=== PATIENT | female | born 1980 ===

== ENCOUNTER 2016-08-06 20:52 | Emergency (ER) | payer OTHER ==
[2016-08-06] MEDS ORDERED: Potassium Chloride 20 mEq ER Tab PO ONE (21:01)
[2016-08-06] MEDS ORDERED: cefTRIAXone (Rocephin) 1 gm Inj ONE (21:01)
[2016-08-06 21:02] VITALS: BP 133/71; PULSE 76; RESP 18; TEMP 98.2; O2SAT 99
--- NOTE | 2016-08-06 21:37 | ED PDOC ---
HPI: Skin/Bite Injury Time Seen by Provider: 08/06/16 21:11 Chief Complaint (Nursing): Abnormal Skin Integrity Chief Complaint (Provider): Rash History Per: Patient History/Exam Limitations: no limitations Onset/Duration Of Symptoms: Days (x3 days) Current Symptoms Are (Timing): Still Present Quality Of Symptoms: Painful, Itching, Swollen Severity: Moderate Additional History Per: Patient Additional Complaint(s): Hannah Hanley is a 35 year old female, with no pertinent past medical history, who presents to the emergency department with complaints of a severe rash, that she has been experiencing for the past 3 days. Patient states she's been taking Benadryl for her pain; however, it has provided no relief or improvement, prompting her visit to the ED. Denies a sore throat and shortness of breath. Of note, patient states she has never had anything similar to this in the past and has not been exposed to any new types of food or chemicals in her life recently. PMD: Soto Hanley Past Medical History Reviewed: Historical Data, Nursing Documentation, Vital Signs Vital Signs: Last Vital Signs Temp 98.2 F 08/06/16 20:59 Pulse 76 08/06/16 20:59 Resp 18 08/06/16 20:59 BP 133/71 08/06/16 20:59 Pulse Ox 99 08/06/16 22:21 - Medical History PMH: No Chronic Diseases - Surgical History Surgical History: Tonsillectomy - Family History Family History: States: Unknown Family Hx - Social History Current smoker - smoking cessation education provided: No Ex-Smoker (has not smoked in the last 12 months): No Alcohol: None Drugs: Denies - Home Medications Home Medications: Ambulatory Orders Medication Instructions Recorded Albuterol HFA [Ventolin HFA 90 2 puff IH [id number] PRN #30 puff 01/01/15 mcg/actuation (8 g)] Prednisone 40 mg PO DAILY 3 Days 01/01/15 Albuterol HFA [Ventolin HFA 90 1 puff IH ASDIR #1 unit 06/14/15 mcg/actuation (8 g)] Azithromycin [Zithromax Z-Alen] 250 mg PO DAILY #1 packet 06/14/15 Prednisone 20 mg PO BID #10 tablet 06/14/15 guaiFENesin/Codeine [Robitussin 5 ml PO Q4H PRN #240 ml 06/14/15 w/Codeine] Albuterol HFA [Ventolin HFA 90 1 - 2 puff IH Q4 PRN #1 inhaler 09/08/15 mcg/actuation (8 g)] Ibuprofen 600 mg PO Q6 PRN #20 tablet 09/08/15 Albuterol HFA [Ventolin HFA 90 1 puff IH Q4 PRN #1 inhaler 07/13/16 mcg/actuation (8 g)] Loratadine [Allergy] 10 mg PO DAILY #30 tablet 07/13/16 predniSONE [predniSONE Tab] 60 mg PO DAILY #9 tab 07/13/16 DiphenhydrAMINE [Benadryl] 2 tab PO Q6 PRN #24 cap 08/06/16 Epinephrine [Epipen] 0.3 mg IJ ONCE PRN #2 auto.injct 08/06/16 Famotidine [Pepcid] 20 mg PO BID #10 tab 08/06/16 predniSONE [predniSONE Tab] 3 tab PO DAILY #12 tab 08/06/16 - Allergies Allergies/Adverse Reactions: Allergies Allergy/AdvReac Type Severity Reaction Status Date / Time No Known Allergies Allergy Verified 07/13/16 01:31 Review of Systems ROS Statement: Except As Marked, All Systems Reviewed And Found Negative ENT: Negative for: Throat Pain, Throat Swelling Respiratory: Negative for: Shortness of Breath Skin: Positive for: Rash Physical Exam - Reviewed Nursing Documentation Reviewed: Yes Vital Signs Reviewed: Yes - Physical Exam Appears: Positive for: No Acute Distress Head Exam: Positive for: ATRAUMATIC, NORMOCEPHALIC Skin: Positive for: Warm, Dry, Rash (diffuse urticaria) Eye Exam: Positive for: Normal appearance ENT: Positive for: Normal ENT Inspection. Negative for: Pharyngeal Erythema, Tonsillar Exudate, Tonsillar Swelling Neck: Positive for: Normal, Painless ROM Cardiovascular/Chest: Positive for: Regular Rate, Rhythm. Negative for: Murmur Respiratory: Positive for: Wheezing (minimal) Back: Positive for: Normal Inspection, Other (diffuse urticaria, anterior/ posterior thorax). Negative for: L CVA Tenderness, R CVA Tenderness Extremity: Positive for: Normal ROM. Negative for: Tenderness Neurologic/Psych: Positive for: Alert, Oriented. Negative for: Motor/Sensory Deficits - ECG O2 Sat by Pulse Oximetry: 99 (RA) Pulse Ox Interpretation: Normal - Progress ED Course And Treament: solumedrol 125 mg IM x 1 dose benadryl 50 mg po x 1 dose pepcid 20 mg x 1 ose Medical Decision Making Medical Decision Makin:11 Initial Impression: Urticaria Initial Plan: * Benadryl 50mg PO * Pepcid 20mg PO * SOLU-Medrol 125mg IM * Reevaluation Scribe Attestation: Documented by Galen Gutierrez, training under Linda Royal, acting as a scribe for Frank MILLER. Provider Scribe Attestation: All medical record entries made by the Scribe were at my direction and personally dictated by me. I have reviewed the chart and agree that the record accurately reflects my personal performance of the history, physical exam, medical decision making, and the department course for this patient. I have also personally directed, reviewed, and agree with the discharge instructions and disposition. Disposition - Clinical Impression Clinical Impression: Urticaria - Patient ED Disposition Is Patient to be Admitted: No - Disposition Referrals: [facility] [Outside] Disposition: Routine/Home Disposition Time: 22:18 Condition: FAIR Prescriptions: DiphenhydrAMINE [Benadryl] 2 tab PO Q6 PRN #24 cap PRN Reason: Itching / Pruritus Epinephrine [Epipen] 0.3 mg IJ ONCE PRN #2 auto.injct PRN Reason: Anaphylaxis Famotidine [Pepcid] 20 mg PO BID #10 tab predniSONE [predniSONE Tab] 3 tab PO DAILY #12 tab Instructions: Urticaria (ED) Forms: [facility] ED School/Work Excuse
== END 2016-08-06 23:31 | disposition home or self-care (01) ==
LOC: H.ER 20:52
DX: L50.9 Urticaria, unspecified (principal)

== ENCOUNTER 2016-10-07 21:08 | Emergency (ER) | payer SELFPAY ==
[2016-10-07 21:12] VITALS: BP 122/80; RESP 20; TEMP 98.5
[2016-10-07] MEDS ORDERED: Albuterol-Ipratrop 3 mg / 0.5 (3 ml) UD INH STA (21:17)
[2016-10-07 21:37] VITALS: O2SAT 95
--- NOTE | 2016-10-07 21:37 | ED PDOC ---
HPI: General Adult Time Seen by Provider: 10/07/16 21:13 Chief Complaint (Nursing): Shortness Of Breath Additional Complaint(s): Pt. states yesterday she developed a mild cough with wheezing. She used her albuterol pump and singulair without relief. Pt. reports a hx of asthma which became worse this spring. Denies fever, hemoptysis, sick contacts, recent travel, previous admissions for asthma, previous intubations. Past Medical History Reviewed: Historical Data, Nursing Documentation, Vital Signs Vital Signs: Last Vital Signs Temp 98.5 F 10/07/16 21:10 Pulse 101 H 10/07/16 21:45 Resp 20 10/07/16 21:10 BP 122/80 10/07/16 21:10 Pulse Ox 95 10/07/16 21:45 - Medical History PMH: Asthma - Surgical History Surgical History: Tonsillectomy - Family History Family History: States: Unknown Family Hx - Home Medications Home Medications: Ambulatory Orders Medication Instructions Recorded Albuterol HFA [Ventolin HFA 90 2 puff IH [id number] PRN #30 puff 01/01/15 mcg/actuation (8 g)] Prednisone 40 mg PO DAILY 3 Days 01/01/15 Albuterol HFA [Ventolin HFA 90 1 puff IH ASDIR #1 unit 06/14/15 mcg/actuation (8 g)] Azithromycin [Zithromax Z-Alen] 250 mg PO DAILY #1 packet 06/14/15 Prednisone 20 mg PO BID #10 tablet 06/14/15 guaiFENesin/Codeine [Robitussin 5 ml PO Q4H PRN #240 ml 06/14/15 w/Codeine] Albuterol HFA [Ventolin HFA 90 1 - 2 puff IH Q4 PRN #1 inhaler 09/08/15 mcg/actuation (8 g)] Ibuprofen 600 mg PO Q6 PRN #20 tablet 09/08/15 Albuterol HFA [Ventolin HFA 90 1 puff IH Q4 PRN #1 inhaler 07/13/16 mcg/actuation (8 g)] Loratadine [Allergy] 10 mg PO DAILY #30 tablet 07/13/16 predniSONE [predniSONE Tab] 60 mg PO DAILY #9 tab 07/13/16 DiphenhydrAMINE [Benadryl] 2 tab PO Q6 PRN #24 cap 08/06/16 Epinephrine [Epipen] 0.3 mg IJ ONCE PRN #2 auto.injct 08/06/16 Famotidine [Pepcid] 20 mg PO BID #10 tab 08/06/16 predniSONE [predniSONE Tab] 3 tab PO DAILY #12 tab 08/06/16 Albuterol 0.083% [Albuterol 3 ml IH Q4 PRN #50 neb 10/07/16 Sulfate 3 Ml] Nebulizer [Aeroeclipse] 1 each MC Q4H PRN #1 each 10/07/16 predniSONE [Prednisone] 3 tab PO DAILY #12 tab 10/07/16 - Allergies Allergies/Adverse Reactions: Allergies Allergy/AdvReac Type Severity Reaction Status Date / Time No Known Allergies Allergy Verified 07/13/16 01:31 Review of Systems ROS Statement: Except As Marked, All Systems Reviewed And Found Negative Respiratory: Positive for: Shortness of Breath, Wheezing Physical Exam - Reviewed Nursing Documentation Reviewed: Yes Vital Signs Reviewed: Yes - Physical Exam Appears: Positive for: Well, Non-toxic, No Acute Distress (speaking complete sentences) Head Exam: Positive for: ATRAUMATIC, NORMAL INSPECTION, NORMOCEPHALIC Skin: Positive for: Normal Color, Warm, DRY Eye Exam: Positive for: EOMI, Normal appearance, PERRL ENT: Positive for: Normal ENT Inspection Neck: Positive for: Normal, Painless ROM Cardiovascular/Chest: Positive for: Regular Rate, Rhythm Respiratory: Positive for: Wheezing (b/l expiratory wheezing). Negative for: Decreased Breath Sounds, Accessory Muscle Use, Rales, Rhonchi, Stridor, Respiratory Distress Gastrointestinal/Abdominal: Positive for: Normal Exam, Soft. Negative for: Tenderness Back: Positive for: Normal Inspection Extremity: Positive for: Normal ROM Neurologic/Psych: Positive for: Alert, Oriented - ECG ECG: Positive for: Interpreted By Me ECG Rhythm: Positive for: Sinus Tachycardia. Negative for: ST/T Changes Rate: 101 O2 Sat by Pulse Oximetry: 95 - Radiology X-Ray: Interpreted by Me (CXR) X-Ray Interpretation: No Acute Disease - Progress ED Course And Treament: DuoNeb x 3, prednisone 60mg PO given. Re-evaluation Time: 23:24 (Lungs clear b/l. ) Condition: Re-examined, Improved Disposition - Clinical Impression Clinical Impression: Bronchospasm, acute - Patient ED Disposition Is Patient to be Admitted: No - Disposition Disposition: Routine/Home Disposition Time: 23:24 Condition: IMPROVED Prescriptions: Albuterol 0.083% [Albuterol Sulfate 3 Ml] 3 ml IH Q4 PRN #50 neb PRN Reason: Wheezing Nebulizer [Aeroeclipse] 1 each MC Q4H PRN #1 each PRN Reason: Wheezing predniSONE [Prednisone] 3 tab PO DAILY #12 tab Instructions: Bronchospasm (ED) Print Language: BRUNEIAN
[2016-10-07 21:45] VITALS: PULSE 101
[2016-10-07] MEDS ORDERED: Albuterol 0.083% Inhal Sol (2.5 mg/3 mL) UD INH STA (22:06)
--- NOTE | 2016-10-08 09:33 | RAD ---
HISTORY: Cough. COMPARISON: 07/13/2016. TECHNIQUE: Chest PA and lateral FINDINGS: LUNGS: Subsegmental infiltrate retrocardiac region -left lower lobe. Finding best seen on the PA view. PLEURA: No significant pleural effusion identified. No pneumothorax apparent. CARDIOVASCULAR: Normal. OSSEOUS STRUCTURES: No significant abnormalities. VISUALIZED UPPER ABDOMEN: Normal. OTHER FINDINGS: None. IMPRESSION: New left lower lobe retrocardiac infiltrate.
--- NOTE | 2016-10-09 16:39 | CARD ---
APPROVED REPORT EKG Measurement Heart [id number] <Conclusion> Sinus tachycardia Otherwise normal ECG
== END 2016-10-07 23:30 | disposition home or self-care (01) ==
LOC: H.ER 21:08
DX: J45.909 Unspecified asthma, uncomplicated (principal); R05 Cough

== ENCOUNTER 2017-06-17 12:04 | Inpatient (IN) | payer OTHER ==
[2017-06-17 13:03] VITALS: BMI 29.9
[2017-06-17 14:36] LABS: SQUAMOUS EPITHIAL 10 /hpf (0-5); URINE BACTERIA RARE (<OCC); URINE BILIRUBIN NEGATIVE (NEGATIVE); URINE BLOOD MODERATE (NEGATIVE); URINE CLARITY CLOUDY (Clear); URINE COLOR YELLOW (YELLOW); URINE GLUCOSE (UA) NEG (Normal); URINE LEUKOCYTE ESTERASE LARGE Leu/uL (Negative); URINE NITRATE NEGATIVE (NEGATIVE); URINE PROTEIN NEGATIVE (NEGATIVE); URINE UROBILINOGEN 0.2-1.0 mg/dL (0.2-1.0)
--- NOTE | 2017-06-17 14:53 | US ---
HISTORY: Antepartum bleeding. COMPARISON: No prior study available for comparison TECHNIQUE: Transabdominal sonographic evaluation of the uterus performed. FINDINGS: The current study reveals a intrauterine fetus that demonstrates no motion or cardiac activity. Findings are consistent with demise. Clinical correlation recommended. . AMY based on LMP approximately 21 weeks 0 days The cervix measures approximately 5.57 cm. . These findings discussed with attending physician Dr. Morejon at approximately 2:45 p.m. with written down and read back verification. RIGHT OVARY: Right ovary not visualized. LEFT OVARY: Me left ovary not visualized. IMPRESSION: There is a intrauterine gestation that demonstrates no motion or cardiac activity at estimated age based on LMP approximately 21 weeks 0 days. . Findings consistent with demise. . Attending physician aware
--- NOTE | 2017-06-17 16:48 | OBHP ---
Datetime: 06/17/2017 13:18 IP Adm Impression: , intrauterine IP Admit Plan: Initiate demise protocol Admit Comment, IP Provider: 36 yo at 21 wks w/ EDC 10/28/2017 c/o spotting throughout her en tire and now noticing spotting w/ wiping after urination. Pt denies dysuria. Pt denies LO F and reports FM. Pt reports that she currently seeing Dr. Fernandez and was planning to switch to Dr. Lluvia park. 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 Findings c/w f etal demise. A/p: 36 yo at 21 wks w/ antepartum spotting w/ demise Discussed dx w/ pt. Offered option of vaginal delivery or D_E. Pt decided to be delivered vaginally. Will give misoprostol 400 mcg vaginally every 3 hours for a maximum of 5 doses. Extremities - PN: Normal Abdomen - PN: Normal Back - PN: Normal Lungs - PN: Abnormal General - PN: Normal Membranes, Provider: Intact Contraction Comments Provider: None EGA AdmitDate IP: 21.0 Vital Signs Provider: Reviewed; Within Normal Limits IP Chief Complaint: Vaginal bleeding Dilatation, Provider: 0 Effacement, Provider: 0 Station, Provider: -3 Genitourinary Exam: Abnormal
--- NOTE | 2017-06-17 16:53 | OBADHP ---
Datetime: 06/17/2017 16:48 Admit Comment, IP Provider: 36 yo at 21 wks w/ EDC 10/28/2017 c/o spotting throughout her en tire and now noticing spotting w/ wiping after urination. Pt denies dysuria. Pt denies LO F and reports FM. Pt reports that she currently seeing Dr. Fernandez and was planning to switch to Dr. Lluvia park. 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 Findings c/w f etal demise. A/p: 36 yo at 21 wks w/ antepartum spotting w/ demise Discussed dx w/ pt. Offered option of vaginal delivery or D_E. Pt decided to be delivered vaginally. Will give misoprostol 400 mcg vaginally every 3 hours for a maximum of 5 doses. Extremities - PN: Normal Back - PN: Normal Lungs - PN: Abnormal Heart - PN: Normal Thyroid - PN: Normal Neurologic - PN: Normal HEENT - PN: Not Done General - PN: Normal Membranes, Provider: Intact Vital Signs Provider: Reviewed; Within Normal Limits IP Chief Complaint: Vaginal bleeding Dilatation, Provider: 1 Effacement, Provider: 0 Station, Provider: -3 Genitourinary Exam: Normal EGA AdmitDate IP: 21.0 IP Adm Impression: , intrauterine IP Admit Plan: Initiate demise protocol Datetime: 06/17/2017 13:18 Abdomen - PN: Normal Contraction Comments Provider: None
[2017-06-17 17:26] LABS: BASO % 0.3 % (0.0-2.0); EOS # 0.5 K/uL (0.0-0.7); EOS % 4.5 % (0.0-4.0); HEMOGLOBIN 12.3 g/dL (12.0-16.0); LYMPH # 1.2 K/uL (1.0-4.3); MEAN CELL VOLUME 90.2 fl (81.0-99.0); MEAN CORPUSCULAR HEMOGLOBIN 30.7 pg (27.0-31.0); MEAN PLATELET VOLUME 10.9 fl (7.2-11.7); MONO # 0.3 K/uL (0.0-0.8); NEUT # 8.7 K/uL (1.8-7.0); NEUT % 81.2 % (50.0-75.0); RBC 4.01 Mil/uL (3.80-5.20); RED CELL DISTRIBUTION WIDTH 15.5 % (11.5-14.5); WHITE BLOOD COUNT 10.8 K/uL (4.8-10.8)
[2017-06-17] MEDS ORDERED: Nalbuphine 20 mg/ml Inj (1 ml) IVP PRN (21:46)
[2017-06-18] MEDS: Oxycodone/Acetaminophen 5/325 mg Tab PO PRN ×2 (09:15→14:25)
[2017-06-18] MEDS ORDERED: Oxycodone/Acetaminophen 5/325 mg Tab ONE (09:19)
--- NOTE | 2017-06-18 18:35 | OBDS ---
DELIVERY PERSONNEL Delivery Doctor: Champ Springer MD Manager Wound: Latesha Blanchard RN MATERNAL INFORMATION Delivery Anesthesia: None Medications in Delivery: Pitocin 40 mu in 1 liter of LR infused at 300cc/hr Estimated Blood Loss (ml): 75 Placenta Cultured: Yes Maternal Complications: None RN Comments: of fetus noted with anatomy equivalent to 14 weeks gestational age. fetus deliver ed with placenta simultaneously. Patient tolerated delivery well. Provider Comments: AP Dx: Missed AB @14.5wks by US 21.1wks by dates PP DX: Missed AB c/w 14.5wks Procedure: Cytotec Induction with fetus within intact amniotic sac and placenta EBL: 150cc no complications pt remained in delivery room LABOR SUMMARY EDC: 10/28/2017 00:00 No. Babies in Womb: 1 Attempted: No Labor Anesthesia: None LABOR INFORMATION Reason for Induction: Demise Onset of Labor: 06/18/2017 07:00 Complete Dilatation: 06/18/2017 08:05 Cervical Ripening Agents: Cytotec @ (Annotations: 200 mg each tab 2 tabs inserted via vaginally by dr valencia ) Other Ripening Agents: [id number] mcg intravaginally Oxytocin: N/A Group B Beta Strep: N/A Antibiotics # of Doses: 0 Antibiotics Time of Last Dose: 0 Steroids Given: None Reason Steroids Not Administered: Not Applicable Other Reason Not Administered: not required MEMBRANES Membranes Rupture Method: Spontaneous Rupture of Membranes: 06/18/2017 08:10 Length of Rupture (hrs): 0.00 Amniotic Fluid Color: Clear Amniotic Fluid Amount: Small Amniotic Fluid Odor: Normal STAGES OF LABOR Stage 1 hrs: 1 Stage 1 min: 5 Stage 2 hrs: 0 Stage 2 min: 5 Stage 3 hrs: 0 Stage 3 min: 0 Total Time in Labor hrs: 1 Total Time in Labor min: 10 VAGINAL DELIVERY Episiotomy: None Laceration Extension: N/A Laceration Type: None Laceration Repair: Not Applicable Initial Vag Sponge Count: 5 Final Vag Sponge Count: 5 Initial Vag Sharps Count: 0 Final Vag Sharps Count: 0 Sponge Count Correct: Yes Sharps Count Correct: N/A BABY A INFORMATION Infant Delivery Date/Time: 06/18/2017 08:10 Method of Delivery: Vaginal Born in Route : No : N/A Forceps: N/A Vacuum Extraction: N/A Shoulder Dystocia : No SHOULDER DYSTOCIA BABY A Delivery Date/Time: 06/18/2017 08:10 PRESENTATION/POSITION BABY A Presentation: Unable to Assess Cephalic Presentation: N/A Breech Presentation: N/A PLACENTA INFORMATION BABY A Placenta Delivery Time : 06/18/2017 08:10 Placenta Method of Delivery: Spontaneous Placenta Status: Delivered SCORES BABY A Heart Rate 1 min: Absent Resp Effort 1 min: Absent Reflex Irritability 1 min: No Response Muscle Tone 1 min: Flaccid Color 1 min: Blue/Pale Resuscitation Effort 1 min: N/A SCORE 1 MIN: 0 Heart Rate 5 min: Absent Resp Effort 5 min: Absent Reflex Irritability 5 min: No Response Muscle Tone 5 min: Flaccid Color 5 min: Blue/Pale Resuscitation Effort 5 min: N/A SCORE 5 MIN: 0 INFANT INFORMATION BABY A Gestational Age at Delivery: 14.0 Gestational Status: Infant Outcome : AB < 20 Weeks Infant Condition : demise Sex: Ambiguous CORD INFORMATION BABY A No. Cord Vessels: unknown Nuchal Cord : N/A True Knot: 0 Cord Blood Taken: N/A Infant Suction: None
[2017-06-19] MEDS: Oxycodone/Acetaminophen 5/325 mg Tab PO PRN (00:53)
[2017-06-19 15:09] VITALS: BP 100/61; PULSE 74; RESP 20; TEMP 98.4; O2SAT 100
== END 2017-06-19 10:45 | disposition home or self-care (01) | DRG 373 ==
LOC: H.EROB2 12:04 → H.EROB 12:40 → H.L&D 16:37 → H.EROB2 16:40
PROVIDERS: ADMIT Obstetrics & Gynecology; ATTEND Obstetrics & Gynecology
PROC: 4A1HXCZ Monitoring of Products of Conception, Cardiac Rate, External Approach (ICD-10-PCS; 2017-06-17)
PROC: 10E0XZZ Delivery of Products of Conception, External Approach (ICD-10-PCS; principal; 2017-06-18)
PROC: 3E0P7VZ Introduction of Hormone into Female Reproductive, Via Natural or Artificial Opening (ICD-10-PCS; 2017-06-18)
DX: O36.4XX0 Maternal care for intrauterine death, not applicable or unspecified (principal); Z37.1 Single stillbirth; Z3A.21 21 weeks gestation of pregnancy; J45.909 Unspecified asthma, uncomplicated; O99.52 Diseases of the respiratory system complicating childbirth

== ENCOUNTER 2018-05-10 14:46 | Emergency (ER) | payer OTHER ==
[2018-05-10 14:47] VITALS: BMI 29.9
--- NOTE | 2018-05-10 15:01 | ED PDOC ---
History of Present Illness History of Present Illness: 37 y/o female with a PMHx of Asthma presents to the ED for evaluation of flu- like symptoms. Patient reports of developing worsening chest tightness over the last 24 hours associated with a cough. Patient reports of taking Symbicort for Asthma once today with minimal relief. Patient additionally reports of possible sick contact with nephew. PMD: Soto Hanley HPI: Influenza Time Seen by Provider: 05/10/18 14:58 Chief Complaint: Flu-like Symptoms Chief Complaint (Provider): Flu-like Symptoms History Per: Patient Exam Limitations: no limitations Have you had recent travel within the past 21 days to any of: No Onset/Duration Of Symptoms: Days Symptoms include: cough, chest pain (Tightness) Sick Contacts (Context): Family Member(s) (possilble sick contact with nepew) Past Medical History Reviewed: Historical Data, Nursing Documentation, Vital Signs Vital Signs: Last Vital Signs Temp 98.8 F 05/10/18 14:57 Pulse 80 05/10/18 14:57 Resp 16 05/10/18 14:57 BP 121/85 05/10/18 14:57 Pulse Ox 97 05/10/18 14:57 - Medical History PMH: Asthma Denies: Depression, Diabetes, HTN - Surgical History Surgical History: Tonsillectomy - Family History Family History: States: Unknown Family Hx - Living Arrangements Living Arrangements: With Family - Home Medications Home Medications: Ambulatory Orders Medication Instructions Recorded Budesonide/Formoterol Fumarate 1 puff PO BID MDD 2 puffs 06/17/17 [Symbicort 80-4.5 Mcg Inhaler] Pnv No.95/Ferrous Fum/Folic AC 1 tab PO DAILY MDD 1 06/17/17 [ Vitamin Tablet] Albuterol/Ipratropium [Duoneb 3 3 ml IH TID #30 neb 05/10/18 MG/3 Ml-0.5 MG/3 Ml 3 Ml] - Allergies Allergies/Adverse Reactions: Allergies Allergy/AdvReac Type Severity Reaction Status Date / Time No Known Allergies Allergy Verified 05/10/18 14:56 Review of Systems ROS Statement: Except As Marked, All Systems Reviewed And Found Negative Cardiovascular: Positive for: Chest Pain (tightness) Respiratory: Positive for: Cough Physical Exam - Reviewed Nursing Documentation Reviewed: Yes Vital Signs Reviewed: Yes - Physical Exam Appears: Positive for: Uncomfortable Head Exam: Positive for: ATRAUMATIC, NORMOCEPHALIC Skin: Positive for: Warm, Dry Eye Exam: Positive for: Normal appearance ENT: Positive for: Other (Tonsills surgically removed. No Pharyngeal Exudates). Negative for: Pharyngeal Erythema, Tonsillar Exudate Neck: Positive for: Normal, Painless ROM (Cervical nodes 1+ bilaterally) Cardiovascular/Chest: Positive for: Regular Rate, Rhythm. Negative for: Murmur Respiratory: Positive for: Rales (in all 4 quadrants) Extremity: Positive for: Normal ROM. Negative for: Deformity Neurologic/Psych: Positive for: Alert, Oriented (x3). Negative for: Motor/Sensory Deficits Medical Decision Making Medical Decision Making: Time: 151 Impression: Flu, Pneumonia Plan: -- EKG -- CMP -- ED Urine Pregancy -- CXR Two Views -- Duoneb 3 mg/0.5 mg (3 ml) UD 9 ml INH -- Sodium Chloride 0.9% IV 1000 mls/hr -- Rocephin 1 gm Sodium Chloride 0.9% 100 ml IVPB -- Tylenol 650 mg PO -- Blood Culture -- Nebulizer Treatment RT -- Peak Flow Pre/Post Tx -- Influenza A B -- Rapid Strep Group A Antigen -- Urinalysis Time: 1642 -- CXR, as read by ANGELA demonstrates wet read, no infiltrates, no eklases, no pneumothorax. Normal CXR. Scribe Attestation: Documented by Sol Sanchez, acting as a scribe for Rajiv Adkins PA-C. Provider Scribe Attestation: All medical record entries made by the Scribe were at my direction and personally dictated by me. I have reviewed the chart and agree that the record accurately reflects my personal performance of the history, physical exam, medical decision making, and the department course for this patient. I have also personally directed, reviewed, and agree with the discharge instructions and disposition. - Laboratory Results Result Diagrams: 05/10/18 15:36 05/10/18 15:36 - ECG ECG Rhythm: Positive for: Sinus Rhythm Interpretation Of ECG: Normal AK Interval Rate: 80 O2 Sat by Pulse Oximetry: 97 (RA) Pulse Ox Interpretation: Normal Disposition - Clinical Impression Clinical Impression: Influenza-like symptoms, Bronchospasm Counseled Patient/Family Regarding: Studies Performed, Diagnosis, Need For Followup, Rx Given - Disposition Disposition: Routine/Home Disposition Time: 17:32 Condition: STABLE Additional Instructions: Dayquil Nyquil Fluids Rest Chicken Soup Prescriptions: Albuterol/Ipratropium [Duoneb 3 MG/3 Ml-0.5 MG/3 Ml 3 Ml] 3 ml IH TID #30 neb Instructions: Asthma in Adults, Asthma, Adult (DC) Forms: [facility] ([employer])
[2018-05-10] MEDS ORDERED: Sodium Chloride 0.9% 1,000 ML IV SCH ×2 (15:15→16:15)
[2018-05-10 15:41] LABS: BASO % 0.6 % (0.0-2.0); EOS # 0.3 K/uL (0.0-0.7); EOS % 5.4 % (0.0-4.0); HEMOGLOBIN 12.8 g/dL (12.0-16.0); LYMPH # 0.8 K/uL (1.0-4.3); MEAN CELL VOLUME 92.7 fl (81.0-99.0); MEAN CORPUSCULAR HEMOGLOBIN 30.4 pg (27.0-31.0); MEAN CORPUSCULAR HGB CONC 32.8 g/dL (33.0-37.0); MEAN PLATELET VOLUME 10.7 fl (7.2-11.7); MONO # 0.4 K/uL (0.0-0.8); MONO % 7.5 % (0.0-10.0); NEUT % 71.5 % (50.0-75.0); NRBC % 0.2 % (0.0-0.0); RBC 4.22 Mil/uL (3.80-5.20); RED CELL DISTRIBUTION WIDTH 15.1 % (11.5-14.5); WHITE BLOOD COUNT 5.6 K/uL (4.8-10.8)
[2018-05-10] MEDS ORDERED: cefTRIAXone (Rocephin) 1 gm Inj ONE (15:41)
[2018-05-10] MEDS ORDERED: Albuterol-Ipratrop 3 mg / 0.5 (3 ml) UD ONE (15:44)
[2018-05-10 15:53] LABS: ALB/GLOB RATIO 1.4 (1.0-2.1); ALBUMIN 4.2 g/dL (3.5-5.0); ALT/SGPT 18 U/L (9-52); AST/SGOT 25 U/L (14-36); BLOOD UREA NITROGEN 12 mg/dl (7-17); CALCIUM 9.3 mg/dL (8.4-10.2); GFR NON-AFRICAN AMERICAN > 60
[2018-05-10 16:07] LABS: SQUAMOUS EPITHIAL 4 /hpf (0-5); URINE BACTERIA RARE (<OCC); URINE BILIRUBIN NEGATIVE (NEGATIVE); URINE BLOOD SMALL (NEGATIVE); URINE CLARITY SLIGHTY-CLOUDY (Clear); URINE COLOR YELLOW (YELLOW); URINE GLUCOSE (UA) NEG (NEGATIVE); URINE LEUKOCYTE ESTERASE NEG Leu/uL (Negative); URINE PROTEIN NEGATIVE (NEGATIVE); URINE UROBILINOGEN 0.2-1.0 mg/dL (0.2-1.0)
[2018-05-10] MEDS: Albuterol-Ipratrop 3 mg / 0.5 (3 ml) UD INH STA ×2 (16:07→16:44)
[2018-05-10 17:12] VITALS: BP 114/64; RESP 20; TEMP 98.6
[2018-05-10 17:33] VITALS: PULSE 80; O2SAT 97
--- NOTE | 2018-05-10 23:10 | CARD ---
APPROVED REPORT Date of service: 05/10/2018 EKG Measurement Heart [id number] <Conclusion> Normal sinus rhythm Normal ECG
--- NOTE | 2018-05-11 09:51 | RAD ---
Date of service: 05/10/2018 HISTORY: r/o PNA COMPARISON: No prior. TECHNIQUE: Chest PA and lateral FINDINGS: LUNGS: No active pulmonary disease. PLEURA: No significant pleural effusion identified. No pneumothorax apparent. CARDIOVASCULAR: No aortic atherosclerotic calcification present. Normal cardiac size. No pulmonary vascular congestion. OSSEOUS STRUCTURES: No significant abnormalities. VISUALIZED UPPER ABDOMEN: Normal. OTHER FINDINGS: None. IMPRESSION: No active disease.
== END 2018-05-10 17:35 | disposition home or self-care (01) ==
LOC: H.ER 14:46
DX: J11.1 Influenza due to unidentified influenza virus with other respiratory manifestations (principal); J98.01 Acute bronchospasm
CPT/HCPCS: 71046; 80053; 81003; 81025; 85025; 87040; 87070; 87430; 87804; 93005; 94640; 96374; 99283; J0696; J7030

== ENCOUNTER 2018-07-21 01:13 | Emergency (ER) | payer OTHER ==
[2018-07-21 01:14] VITALS: BMI 29.9
[2018-07-21 01:33] VITALS: BP 121/76; PULSE 72; RESP 16; TEMP 98.5; O2SAT 98
--- NOTE | 2018-07-21 02:05 | ED PDOC ---
HPI: Back Time Seen by Provider: 07/21/18 01:35 Chief Complaint (Nursing): Back Pain Chief Complaint (Provider): Back Pain History Per: Patient History/Exam Limitations: no limitations Onset/Duration Of Symptoms: Days (2) Additional Complaint(s): 37 y/o female with history of asthma who is with estimated gestation age of 7 weeks presents to the ED complaining of left lank pain for x2 days. Patient reports pain is worse with movement and activity. Denies associated urinary symptoms, nausea, vomiting, abdominal pain, vaginal bleeding or vaginal discharge. Patient reports she took Tylenol with little to no relief. OB: Dr. Morejon Past Medical History Reviewed: Historical Data, Nursing Documentation, Vital Signs Vital Signs: Last Vital Signs Temp 98.5 F 07/21/18 01:30 Pulse 72 07/21/18 01:30 Resp 16 07/21/18 01:30 BP 121/76 07/21/18 01:30 Pulse Ox 98 07/21/18 01:30 - Medical History PMH: Asthma Denies: Depression, Diabetes, HTN - Surgical History Surgical History: Tonsillectomy - Family History Family History: States: Unknown Family Hx - Social History Current smoker - smoking cessation education provided: No Alcohol: None Drugs: Denies - Home Medications Home Medications: Ambulatory Orders Medication Instructions Recorded Budesonide/Formoterol Fumarate 1 puff PO BID MDD 2 puffs 06/17/17 [Symbicort 80-4.5 Mcg Inhaler] Pnv No.95/Ferrous Fum/Folic AC 1 tab PO DAILY MDD 1 06/17/17 [ Vitamin Tablet] Albuterol/Ipratropium [Duoneb 3 3 ml IH TID #30 neb 05/10/18 MG/3 Ml-0.5 MG/3 Ml 3 Ml] - Allergies Allergies/Adverse Reactions: Allergies Allergy/AdvReac Type Severity Reaction Status Date / Time No Known Allergies Allergy Verified 05/10/18 14:56 Review of Systems ROS Statement: Except As Marked, All Systems Reviewed And Found Negative Gastrointestinal: Negative for: Nausea, Vomiting Genitourinary Female: Negative for: Dysuria, Frequency, Incontinence, Vaginal Discharge, Vaginal Bleeding Musculoskeletal: Positive for: Back Pain (Left flank) Physical Exam - Reviewed Nursing Documentation Reviewed: Yes Vital Signs Reviewed: Yes - Physical Exam Appears: Positive for: Well, Non-toxic, No Acute Distress Head Exam: Positive for: ATRAUMATIC, NORMAL INSPECTION, NORMOCEPHALIC Skin: Positive for: Normal Color, Warm, DRY Eye Exam: Positive for: EOMI, Normal appearance, PERRL ENT: Positive for: Normal ENT Inspection Neck: Positive for: Normal, Painless ROM Cardiovascular/Chest: Positive for: Regular Rate, Rhythm. Negative for: Murmur Respiratory: Positive for: Normal Breath Sounds. Negative for: Respiratory Distress Gastrointestinal/Abdominal: Positive for: Normal Exam, Soft. Negative for: Tenderness Back: Positive for: Normal Inspection. Negative for: L CVA Tenderness, R CVA Tenderness Extremity: Positive for: Normal ROM. Negative for: Pedal Edema, Deformity Neurological/Psych: Positive for: Awake, Alert, Normal Tone. Negative for: Motor/Sensory Deficits - ECG O2 Sat by Pulse Oximetry: 98 (RA) Pulse Ox Interpretation: Normal Medical Decision Making Medical Decision Making: Time: 01:56 Impression: 37 y/o with flank pain in early Initial Plan: * Labs * US Pelvis/Transvag Scribe Attestation: Documented by Rick Mckee, acting as a scribe Naya Soliman MD. Provider Scribe Attestation: All medical record entries made by the Scribe were at my direction and personally dictated by me. I have reviewed the chart and agree that the record accurately reflects my personal performance of the history, physical exam, medical decision making, and the department course for this patient. I have also personally directed, reviewed, and agree with the discharge instructions and disposition. Disposition - Disposition Forms: [employer] (German)
[2018-07-21 03:03] LABS: BASO # 0.1 K/uL (0.0-0.2); BASO % 0.7 % (0.0-2.0); EOS # 0.6 K/uL (0.0-0.7); EOS % 6.2 % (0.0-4.0); HEMOGLOBIN 12.8 g/dL (12.0-16.0); LYMPH # 2.3 K/uL (1.0-4.3); LYMPH % 21.8 % (20.0-40.0); MEAN CORPUSCULAR HEMOGLOBIN 30.4 pg (27.0-31.0); MEAN CORPUSCULAR HGB CONC 33.8 g/dL (33.0-37.0); MEAN PLATELET VOLUME 10.9 fl (7.2-11.7); MONO # 0.6 K/uL (0.0-0.8); MONO % 6.1 % (0.0-10.0); NEUT # 6.8 K/uL (1.8-7.0); NEUT % 65.2 % (50.0-75.0); NRBC % 0.1 % (0.0-0.0); RBC 4.2 Mil/uL (3.80-5.20); RED CELL DISTRIBUTION WIDTH 15.3 % (11.5-14.5); WHITE BLOOD COUNT 10.4 K/uL (4.8-10.8)
[2018-07-21 03:07] LABS: SQUAMOUS EPITHIAL 3 /hpf (0-5); URINE AMORPHOUS SEDIMENT RARE /ul (<OCC); URINE BILIRUBIN NEGATIVE (NEGATIVE); URINE BLOOD NEGATIVE (NEGATIVE); URINE CLARITY CLOUDY (Clear); URINE COLOR YELLOW (YELLOW); URINE GLUCOSE (UA) NEG (NEGATIVE); URINE LEUKOCYTE ESTERASE NEG Leu/uL (Negative); URINE PROTEIN NEGATIVE (NEGATIVE); URINE UROBILINOGEN 0.2-1.0 mg/dL (0.2-1.0)
--- NOTE | 2018-07-21 09:55 | US ---
Date of service: 07/21/2018 PROCEDURE: OB Pelvic Ultrasound HISTORY: Back pain in preg COMPARISON: None available. FINDINGS: UTERUS: Single Live intrauterine gestation. CRL measures 1.3 cm equivalent to 7 weeks and 2 days of gestational age. Gestational sac diameter measures 2.1 cm equivalent to 6 weeks and 5 days of gestational age. age (Ultrasound estimated): 7 weeks and 0 day Date of delivery (Ultrasound estimated) : 03/09/2019 Heart rate: 165 bpm. Bella-gestational hemorrhage: None. Uterus measures 11.1 x 8.6 x 7.9 cm. No mass CERVIX: Long and closed. No cervical abnormality seen. RIGHT OVARY: Measures 2.3 x 1.6 x 1.7 cm. No mass. Normal flow. LEFT OVARY: Measures 2.5 x 1.9 x 2.0 cm. No mass. Normal flow. FREE FLUID: None. OTHER FINDINGS: None. IMPRESSION: Single live intrauterine gestation with mean gestational age of 7 weeks and 0 day. The estimated date of delivery by ultrasound is 03/09/2019. The ultrasound dates correspond with the clinical dates. A preliminary report was provided by [facility].
== END 2018-07-21 04:09 | disposition home or self-care (01) ==
LOC: H.ER 01:13
DX: O26.891 Other specified pregnancy related conditions, first trimester (principal); Z3A.01 Less than 8 weeks gestation of pregnancy